=== PATIENT | female | born 1960 | race Caucasian/White ===

== ENCOUNTER → 2023-12-01 10:49 | Outpatient (REF) | payer OTHER, SELFPAY | LOC: WDC 10:49 | PROVIDERS: ATTENDING PHYSICIAN Physician Assistant Medical | DX: Z12.31 Encounter for screening mammogram for malignant neoplasm of breast (principal) | CPT/HCPCS: 77063; 77067 ==

== ENCOUNTER → 2024-02-03 06:23 | Day surgery (SDC) | payer OTHER, SELFPAY | LOC: GI 06:23 | PROVIDERS: ATTENDING PHYSICIAN Internal Medicine Gastroenterology | DX: Z12.11 Encounter for screening for malignant neoplasm of colon (principal); K57.30 Diverticulosis of large intestine without perforation or abscess without bleeding; K64.8 Other hemorrhoids | CPT/HCPCS: G0121 ==

== ENCOUNTER 2025-07-16 06:57 | Outpatient (RCR) | payer OTHER, SELFPAY | END 2025-07-16 23:59 | disposition home or self-care (01) | LOC: RPT 06:57 | PROVIDERS: ATTENDING PHYSICIAN Physician Assistant Medical | DX: I97.2 Postmastectomy lymphedema syndrome (principal); S16.1XXD Strain of muscle, fascia and tendon at neck level, subsequent encounter; Z73.6 Limitation of activities due to disability; Z85.3 Personal history of malignant neoplasm of breast | CPT/HCPCS: 97110; 97140; 97163; 97530 ==

== ENCOUNTER 2025-08-08 06:55 | Outpatient (RCR) | payer OTHER, SELFPAY | END 2025-08-09 06:59 | disposition home or self-care (01) | LOC: RPT 06:55 | PROVIDERS: ATTENDING PHYSICIAN Physician Assistant Medical | DX: I97.2 Postmastectomy lymphedema syndrome (principal); S16.1XXD Strain of muscle, fascia and tendon at neck level, subsequent encounter; Z73.6 Limitation of activities due to disability; Z85.3 Personal history of malignant neoplasm of breast; X58.XXXD Exposure to other specified factors, subsequent encounter | CPT/HCPCS: 97110; 97112; 97140; 97530 ==